=== PATIENT | male | born 1990 | race Caucasian/White ===

== ENCOUNTER → 2024-03-20 14:47 | Outpatient (REF) | payer BC, SELFPAY | LOC: HWRAD 14:47 | PROVIDERS: ATTENDING PHYSICIAN Physician Assistant | DX: R09.89 Other specified symptoms and signs involving the circulatory and respiratory systems (principal); F17.200 Nicotine dependence, unspecified, uncomplicated; R06.02 Shortness of breath | CPT/HCPCS: 71046 ==

== ENCOUNTER 2024-08-11 14:52 | Emergency (ER) | payer BC, SELFPAY ==
[2024-08-11 15:08] VITALS: BP 128/84
[2024-08-11 15:28] VITALS: BMI 30.1
[2024-08-11 15:37] LABS: % Basophils 0.5 % (0-2); % Eosinophils 4.9 % (0-6); % Immature Granulocytes 0.5 % (0-0.5); % Lymphocytes 24.9 % (20.5-51.1); % Monocytes 3.7 % (1.7-9.3); % Neutrophils 65.5 % (42.2-75.2); Absolute Basophils 0.1 10^3/uL (0-0.2); Absolute Eosinophils 0.6 10^3/uL (0-0.7); Absolute Immature Granulocytes 0.1 10^3/uL (0-0.05); Absolute Monocytes 0.5 10^3/uL (0.1-0.6); Absolute Neutrophils 7.9 10^3/uL (1.4-6.5); Hematocrit 47.2 % (39.0-52.0); Hemoglobin 16.6 g/dL (13.0-18.0); Mean Corp Hgb Conc. 35.2 g/dL (33.0-37.0); Mean Corpuscular Hgb 30.5 pg (27.0-31.0); Mean Corpuscular Volume 86.8 fL (80.0-94.0); Mean Platelet Volume 10.3 fL (7.4-10.4); Nucleated Red Blood Cells % 0 % (-); Platelet Count 259 10^3/uL (130-400); Red Blood Cell Count 5.44 10^6/uL (4.70-6.10); Red Cell Dist. Width 11.9 % (11.5-14.5); White Blood Cell Count 12.1 10^3/uL (4.8-10.8)
[2024-08-11 15:40] LABS: Urine Albumin 1+ (Neg - Trace); Urine Bilirubin Negative (Negative); Urine Character Clear (Clear); Urine Color Yellow; Urine Glucose Negative (Negative); Urine Ketone Negative (Negative); Urine Leukocyte Negative (Negative); Urine Nitrite Negative (Negative); Urine Occult Blood Negative (Negative); Urine Urobilinogen Negative (Neg - 1+)
[2024-08-11 15:55] LABS: Urine Mucus Many; Urine Squamous Cell 0-2 /LPF (Few)
[2024-08-11 15:56] LABS: Urine Bacteria Moderate (Negative); Urine Red Blood Cell 0-2 /HPF (0-2); Urine White Cell 0-2 /HPF (0-5)
[2024-08-11 15:57] LABS: ALT (SGPT) 35 U/L (0-50); AST (SGOT) 23 U/L (17-59); Albumin 4.9 g/dl (3.5-5.0); Alkaline Phosphatase 51 U/L (38-126); Blood Urea Nitrogen 12 mg/dl (9-20); Calcium 9.7 mg/dl (8.4-10.2); Carbon Dioxide 23 mmol/L (22-30); Chloride 107 mmol/L (98-107); Estimated Creatinine Clearance > 125 ml/min; Glucose 154 mg/dl (70-99); Sodium 141 mmol/L (135-145); Total Bilirubin 0.8 mg/dl (0.2-1.3); Total Protein 7.2 g/dl (6.3-8.2); eGFR > 60.00
[2024-08-11 15:58] LABS: Lipase 166 U/L (23-300)
--- NOTE | 2024-08-11 16:08 | ED.GENMED ---
History of Present Illness
General
Chief Complaint: Abdominal Pain
Time Seen by Provider: 08/11/24 16:08
History of Present Illness
History of Present Illness:
REVIEW OF OLD RECORDS
- The patient denies any significant past medical history; the patient was here in the ER with lower extremity injury in 2011
CHIEF COMPLAINT(S)
Abdominal pain and diarrhea for a few days.
HISTORY OF PRESENT ILLNESS
The patient is a 33-year-old male presenting with abdominal pain and diarrhea that started a few days ago. The patient describes the pain as intermittent, with episodes of significant discomfort followed by periods of feeling normal. The pain is
localized primarily to the left side of the abdomen. The patient reports experiencing diarrhea, but denies any vomiting. There have been no associated fevers, and appetite remains unchanged. The patient has not noticed any blood in the stool. The
patient has no history of colitis, ulcerative colitis, or Crohns disease. He denies any other symptoms such as cough, chest pain, or shortness of breath.
PHYSICAL EXAM
- Abdominal: Moderate tenderness noted in the left lower quadrant, no peritoneal signs no tenderness in the right side or upper part of the abdomen.
- Auscultation: Heart and lung sounds were noted during the examination.
- General: Overall appears comfortable
- HEENT: Moist oral mucosa
- Cardiovascular: No murmurs, normal heart rate, regular rhythm, No chest wall tenderness
- Pulmonary: No respiratory distress, breath sounds are clear and equalerness
- Neurologic: Excellent strength all extremities, no coordination deficits
- Psychiatric: Appropriate mental status, normal insight and judgement
- Extremities: Nontender, no edema, moves all extremities equally
- Skin: No rash, no lesions
PROBLEM LIST
- Acute: Abdominal pain, Diarrhea.
PLAN
- Arrange a computed tomography (CT) scan of the abdomen to rule out conditions such as diverticulitis, perforation, or abscess.
- Monitor white blood cell count, which is elevated, but does not specifically indicate a serious problem.
- Continue with oral hydration as the patient reports adequate fluid intake and does not appear dehydrated.
- Pain management as needed, though the patient currently does not require analgesics.
DIFFERENTIAL DIAGNOSIS
The Differential Diagnosis includes, in no particular order and is not limited to:
1. Diverticulitis
2. Infectious gastroenteritis
3. Irritable bowel syndrome
4. Inflammatory bowel disease
5. Ischemic colitis
6. Appendicitis (unlikely given the left-sided pain)
7. Mesenteric ischemia
8. Renal colic (unlikely given no flank pain or hematuria)
9. Lactose intolerance or other malabsorption syndromes
10. Celiac disease
RADIOLOGY
- CAT scan of the abdomen pelvis shows no clear acute abnormality
EKG
- Not indicated
LABS
- White count 12.1, hemoglobin normal, glucose 154 otherwise chemistries unremarkable including LFTs and lipase
UPDATE
-08/11/24 - 19:[address] scan appears normal with no evidence of conditions such as appendicitis, diverticulitis, or colitis. There is no indication for antibiotics at this time, as the symptoms may be due to a viral illness. The patient is stable to be
discharged with instructions to return if symptoms worsen.
Past History
Past History
ED Past Medical History: None
ED Past Surgical History: None
Social History
Tobacco: Non-smoker
Personal: Single
Living: with family
Employment: Student
Phy Exam
Physical Exam
Physical Exam:
See HPI
Course
Orders/Labs/Results
Orders:
Orders
08/11/24 15:29
Complete Blood Count/With Diff Urgent
Comprehensive Metabolic Panel Urgent
Lipase Urgent
Urinalysis Reflex To Culture Urgent
Date Specimen was Collected: 08/11/24
Time Specimen was Collected: 15:10
Urine Microscopic Reflex Cult Urgent
Urine Culture Urgent
FRANCISCO Source: U
Specimen Description:
Date Specimen was Collected: 08/11/24
Time Specimen was Collected: 15:10
08/11/24 16:14
CT Abd/pelvis W Iv Cont Urgent
Comment:
Reason For Exam: LLQ pain, tender, WBC 12, diarrhea
Abnormal Lab Results
08/11/24
15:29
WBC 12.1 H 10^3/uL
(4.8-10.8)
Abs Immat Gran (auto) 0.1 H 10^3/uL
(0-0.05)
Absolute Neuts (auto) 7.9 H 10^3/uL
(1.4-6.5)
Glucose 154 H mg/dl
(70-99)
Urine Bacteria (Reflex) Moderate A
(Negative)
Urine Albumin (Reflex) 1+ A
(Neg - Trace)
08/11/24 15:29
08/11/24 15:29
Vital Signs
Initial and Last Documented VS:
Initial Vital Signs
Temp Pulse Resp BP Pulse Ox
36.8 C 78 18 128/84 96
08/11/24 15:08 08/11/24 15:08 08/11/24 15:08 08/11/24 15:08 08/11/24 15:08
Last Documented Vital Signs
Temp Pulse Resp BP Pulse Ox
36.8 C 78 18 128/84 96
08/11/24 15:08 08/11/24 15:08 08/11/24 15:08 08/11/24 15:08 08/11/24 15:08
*Pulse Oximetry
Patient hypoxic: no (96% on room air)
*Critical Care Note
Total Time (30-74mins, 75-104mins- exclusive of procedures): Not Applicable
ED Attending Note
-
Portions of this chart may have been created with voice recognition software.� Occasional wrong word or��sound alike� substitutions may have occurred due to the inherent limitations of voice recognition software.
Discharge Plan
Departure
Referrals:
Marisa Whitten PA-C [Family Provider, Internal Medicine]
Interventions
Interventions:
*Risk Screen - Suicide Last Done: 08/11/24 15:08
*General Assessment Last Done: 08/11/24 15:08
*Neglect/Abuse Screening Last Done: 08/11/24 15:08
Discharge Date and Time
Print Language: PARAGUAYAN
== END 2024-08-11 19:36 | disposition home or self-care (01) ==
LOC: EMR 14:52
PROVIDERS: EMERGENCY PHYSICIAN Emergency Medicine; FAMILY PHYSICIAN Physician Assistant
DX: R10.9 Unspecified abdominal pain (principal); R19.7 Diarrhea, unspecified
CPT/HCPCS: 99284; 74177; 80053; 81003; 81015; 83690; 85025; 87086; Q9967